=== PATIENT | female | born 1995 | race Caucasian/White ===

== ENCOUNTER 2020-09-23 23:51 | Emergency (ER) | payer MEDICAID ==
[~2020-09-23] VITALS: Ht 165.1 cm; Wt 99.8 kg
[2020-09-24] VITALS: BP_SYST 121
[2020-09-24] MEDS ORDERED: HYDROcodone/ACETAMIN 5-325 MG TAB (NORCO/ VICODIN) PO ONE (00:45)
[2020-09-24] MEDS ORDERED: KETOROLAC TROMETHAMINE 60 MG/2 ML VIAL IM ONE (00:45)
[2020-09-24] MEDS ORDERED: LYR50 PO (00:53)
[2020-09-24] MEDS ORDERED: MOB7.5 PO (00:53)
[2020-09-24 00:55] LABS: BILIRUBIN,URINE NEGATIVE (NEGATIVE); BLOOD, URINE NEGATIVE (NEGATIVE); CLARITY/URINE CLEAR (CLEAR); COLOR,URINE YELLOW (YELLOW); GLUCOSE,URINE NEGATIVE (NEGATIVE); KETONES,URINE NEGATIVE (NEGATIVE); LEUKOCYTE ESTERASE ,URINE NEGATIVE (NEGATIVE); NITRITE, URINE NEGATIVE (NEGATIVE); PROTEIN URINE NEGATIVE (NEGATIVE); UROBILINOGEN,URINE 0.2 (0.2-1.0)
[2020-09-24 01:14] VITALS: BP_SYST 121
== END 2020-09-24 01:14 | disposition home or self-care (01) ==
LOC: SED 23:51
DX: M54.42 Lumbago with sciatica, left side (principal)
CPT/HCPCS: 81003; 81025; 96372; 99283; J1885